=== PATIENT | female | born 1990 | race Caucasian/White ===

== ENCOUNTER 2024-11-14 21:04 | Emergency (ER) | payer MEDICAID ==
[~2024-11-14] VITALS: Ht 160 cm; Wt 63.6 kg
[2024-11-14 21:45] LABS: PLATELET COUNT (AUTO) 276 K/uL (150-450); RED BLOOD CELL COUNT(AUTO) 4.11 MIL/uL (4.00-5.20); RED CELL DISTRIBUTION WIDTH 13.0 % (11.5-14.5); WHITE BLOOD COUNT (AUTO) 11.3 K/uL (4.5-11.0)
[2024-11-14 22:26] LABS: CALCIUM, TOTAL 8.4 mg/dL (8.8-10.5); CREATININE 0.80 mg/dL (0.60-1.30); GLOMERULAR FILTR. RATE CALC > 60 mL/min (>60); GLUCOSE,RANDOM 73 mg/dL (70-110); SODIUM SERUM 141 mmol/L (136-145); UREA NITROGEN, BLOOD 20 mg/dL (7-18)
[2024-11-14 23:38] LABS: TROPONIN I-HIGH SENSITIVITY 5 ng/L (<51)
[2024-11-15 00:27] VITALS: BP 135/89; PULSE 62; RESP 18; O2SAT 100
== END 2024-11-15 00:31 | disposition home or self-care (01) ==
LOC: EMS 21:04
DX: R07.9 Chest pain, unspecified (principal); R06.02 Shortness of breath
CPT/HCPCS: 71045; 80048; 82550; 84484; 84703; 85025; 93005; 99285; 36415-L1; 36415-TC